=== PATIENT | female | born 1960 | race Caucasian/White ===

== ENCOUNTER 2022-03-31 10:42 | Inpatient (IN) | payer OTHER ==
[2022-03-31 11:31] VITALS: BMI 26.6
[2022-03-31] MEDS ORDERED: ONDANSETRON *ODT* 4 MG TABLET SL PRN (12:45)
[2022-03-31] MEDS ORDERED: DICYCLOMINE HCL 10 MG CAPSULE PO PRN (12:45)
[2022-03-31] MEDS ORDERED: methaDONE HCL 10 MG TABLET (FOR DETOX USE ONLY) PO ONE ×2 (12:45→18:30)
[2022-03-31] MEDS ORDERED: BISMUTH SUBSALICYLATE 262 MG/15 ML BTL PO PRN (12:45)
[2022-03-31] MEDS ORDERED: chlordiazePOXIDE HCL 25 MG CAPSULE PO PRN (12:45)
[2022-03-31] MEDS ORDERED: NALOXONE HCL (KLOXXADO) 8 MG SPRAY NS PRN (12:45)
[2022-03-31] MEDS ORDERED: MAGNESIUM HYDROX 2400MG/30ML ORAL SUSPENSION 30 ML CUP PO PRN (12:45)
[2022-03-31] MEDS ORDERED: BENZOCAINE/MENTHOL (CHLORASEPTIC ) LOZENGE MM PRN (12:45)
[2022-03-31] MEDS ORDERED: MAGNESIUM CITRATE 300 ML BOTTLE PO PRN (12:45)
[2022-03-31] MEDS ORDERED: ACETAMINOPHEN 325 MG TABLET (FP) PO PRN ×2 (12:45)
[2022-03-31] MEDS ORDERED: IBUPROFEN 400 MG TABLET (FP) PO PRN (12:45)
[2022-03-31] MEDS ORDERED: LOPERAMIDE HCL 2 MG CAPSULE PO PRN (12:45)
[2022-03-31] MEDS ORDERED: MAG HYDROX/AL HYDROX/SIMETH 30 ML UNIT-DOSE CUP PO PRN (12:45)
[2022-03-31] MEDS ORDERED: cloNIDine HCL 0.1 MG TABLET PO PRN (12:45)
[2022-03-31] MEDS ORDERED: ALBUTEROL SO4 HFA INHALER IH PRN (15:58)
[2022-03-31] MEDS: chlordiazePOXIDE HCL 25 MG CAPSULE PO SCH ×2 (18:35→22:40)
[2022-03-31] MEDS: hydrOXYzine PAMOATE 25 MG CAPSULE (FP) PO SCH ×3 (18:36→22:39)
[2022-03-31] MEDS: PRENATAL VITAMINS W/ FOLIC ACID TABLET (FP) PO SCH (18:37)
[2022-03-31] MEDS: INSULIN SLIDING SCALE (NOVOLOG) 1 VIAL SQ SCH (18:40)
[2022-03-31] MEDS: MELATONIN 5 MG TABLETS PO SCH (22:39)
[2022-03-31] MEDS: MONTELUKAST NA 10 MG TABLET PO SCH (22:39)
[2022-03-31] MEDS: ATORVASTATIN CA 80 MG TABLET (FP) PO SCH (22:39)
[2022-03-31] MEDS: CARVEDILOL 3.125 MG TABLET (FP) PO SCH (22:39)
[2022-03-31] MEDS: THIAMINE HCL 100 MG TABLET (FP) PO SCH (22:39)
[2022-03-31] MEDS: busPIRone HCL 10 MG TABLET (FP) PO SCH (22:39)
[2022-04-01] MEDS: hydrOXYzine PAMOATE 25 MG CAPSULE (FP) PO SCH ×5 (05:51→22:34)
[2022-04-01] MEDS: chlordiazePOXIDE HCL 25 MG CAPSULE PO SCH ×4 (05:52→22:34)
[2022-04-01] MEDS: INSULIN SLIDING SCALE (NOVOLOG) 1 VIAL SQ SCH ×2 (07:10→17:34)
[2022-04-01] MEDS ORDERED: methaDONE HCL 10 MG TABLET (FOR DETOX USE ONLY) ONE (09:05)
[2022-04-01] MEDS: busPIRone HCL 10 MG TABLET (FP) PO SCH ×2 (10:37→22:34)
[2022-04-01] MEDS: FUROSEMIDE 40 MG TABLET (FP) PO SCH (10:37)
[2022-04-01] MEDS: CARVEDILOL 3.125 MG TABLET (FP) PO SCH ×2 (10:37→22:34)
[2022-04-01] MEDS: ASPIRIN 81 MG CHEWABLE TABLETS PO SCH (10:37)
[2022-04-01] MEDS: SENNOSIDES 8.6MG TABLET (FP) PO SCH (10:37)
[2022-04-01] MEDS: PRENATAL VITAMINS W/ FOLIC ACID TABLET (FP) PO SCH (10:43)
[2022-04-01] MEDS: LISINOPRIL 20 MG TABLET PO SCH (10:44)
[2022-04-01 13:03] LABS: HEMATOCRIT 39.6 % (32.4-45.2); HEMOGLOBIN 13.5 GM/dL (10.7-15.3); MCH 30.2 pg (25.7-33.7); MCHC 34.2 g/dl (32.0-36.0); MEAN CELL VOLUME 88.5 fl (80-96); MEAN PLT VOLUME 7.9 fl (7.5-11.1); PLATELET COUNT 201 10^3/uL (134-434); RBC 4.48 M/mm3 (3.60-5.2); RDW 13.2 % (11.6-15.6); WHITE BLOOD COUNT 5.9 K/mm3 (4.0-10.0)
[2022-04-01 13:39] LABS: CALCIUM 8.8 mg/dL (8.5-10.1)
[2022-04-01 13:40] LABS: ALBUMIN 3.5 g/dl (3.4-5.0); BLOOD UREA NITROGEN 23.8 mg/dL (7-18)
[2022-04-01 13:43] LABS: CREATININE 0.7 mg/dL (0.55-1.3)
[2022-04-01 13:45] LABS: BILIRUBIN,TOTAL 0.4 mg/dL (0.2-1); TOT PROT 5.8 g/dl (6.4-8.2)
[2022-04-01] MEDS: ATORVASTATIN CA 80 MG TABLET (FP) PO SCH (22:34)
[2022-04-01] MEDS: THIAMINE HCL 100 MG TABLET (FP) PO SCH (22:34)
[2022-04-01] MEDS: MONTELUKAST NA 10 MG TABLET PO SCH (22:34)
[2022-04-01] MEDS: MELATONIN 5 MG TABLETS PO SCH (22:34)
[2022-04-01] MEDS: traZODone HCL 50 MG TABLET (FP) PO SCH (22:34)
[2022-04-02 00:14] LABS: EPI CELLS 13 /uL (0-25.1); HYALINE CASTS 0 /uL (0-3.1); PH,URINE 5.5 (5.0-8.0); URINE APPEARANCE CLEAR; URINE BACTERIA 23 /uL (0-1359); URINE BILIRUBIN NEGATIVE (NEGATIVE); URINE COLOR YELLOW; URINE GLUCOSE (UA) NEGATIVE (NEGATIVE); URINE KETONE NEGATIVE (NEGATIVE); URINE LEUK ESTERASE 1+ (NEGATIVE); URINE NITRITE NEGATIVE (NEGATIVE); URINE PROTEIN NEGATIVE (NEGATIVE); URINE RBC 4 /uL (0-23.9); URINE UROBILINOGEN 0.2 mg/dL (0.2-1.0); URINE WBC 11 /uL (0-25.8)
[2022-04-02] MEDS: chlordiazePOXIDE HCL 25 MG CAPSULE PO SCH ×4 (06:35→22:24)
[2022-04-02] MEDS: hydrOXYzine PAMOATE 25 MG CAPSULE (FP) PO SCH ×5 (06:35→22:23)
[2022-04-02] MEDS: INSULIN SLIDING SCALE (NOVOLOG) 1 VIAL SQ SCH ×2 (08:43→18:04)
[2022-04-02] MEDS ORDERED: methaDONE HCL 10 MG TABLET (FOR DETOX USE ONLY) PO ONE (10:00)
[2022-04-02] MEDS: ASPIRIN 81 MG CHEWABLE TABLETS PO SCH (10:30)
[2022-04-02] MEDS: FUROSEMIDE 40 MG TABLET (FP) PO SCH (10:30)
[2022-04-02] MEDS: PRENATAL VITAMINS W/ FOLIC ACID TABLET (FP) PO SCH (10:30)
[2022-04-02] MEDS: CARVEDILOL 3.125 MG TABLET (FP) PO SCH ×2 (10:30→22:24)
[2022-04-02] MEDS: LISINOPRIL 20 MG TABLET PO SCH (10:30)
[2022-04-02] MEDS: SENNOSIDES 8.6MG TABLET (FP) PO SCH (10:30)
[2022-04-02] MEDS: busPIRone HCL 10 MG TABLET (FP) PO SCH ×2 (10:30→22:24)
[2022-04-02] MEDS: IBUPROFEN 600 MG TABLET (FP) PO PRN (11:20)
[2022-04-02] MEDS: MONTELUKAST NA 10 MG TABLET PO SCH (22:24)
[2022-04-02] MEDS: ATORVASTATIN CA 80 MG TABLET (FP) PO SCH (22:24)
[2022-04-02] MEDS: MELATONIN 5 MG TABLETS PO SCH (22:24)
[2022-04-02] MEDS: traZODone HCL 50 MG TABLET (FP) PO SCH (22:24)
[2022-04-02] MEDS: THIAMINE HCL 100 MG TABLET (FP) PO SCH (22:24)
[2022-04-03] MEDS ORDERED: chlordiazePOXIDE HCL 10 MG CAPSULE PO PRN
[2022-04-03] MEDS: METHOCARBAMOL 500 MG TABLET PO PRN ×2 (04:35→22:30)
[2022-04-03] MEDS: hydrOXYzine PAMOATE 25 MG CAPSULE (FP) PO SCH ×5 (06:50→22:29)
[2022-04-03] MEDS: chlordiazePOXIDE HCL 10 MG CAPSULE PO SCH ×4 (06:50→22:28)
[2022-04-03] MEDS: INSULIN SLIDING SCALE (NOVOLOG) 1 VIAL SQ SCH ×2 (06:53→17:28)
[2022-04-03] MEDS ORDERED: methaDONE HCL 10 MG TABLET (FOR DETOX USE ONLY) ONE (10:06)
[2022-04-03] MEDS: FUROSEMIDE 40 MG TABLET (FP) PO SCH (10:33)
[2022-04-03] MEDS: LISINOPRIL 20 MG TABLET PO SCH (10:33)
[2022-04-03] MEDS: busPIRone HCL 10 MG TABLET (FP) PO SCH ×2 (10:33→22:29)
[2022-04-03] MEDS: CARVEDILOL 3.125 MG TABLET (FP) PO SCH ×2 (10:33→22:29)
[2022-04-03] MEDS: ASPIRIN 81 MG CHEWABLE TABLETS PO SCH (10:33)
[2022-04-03] MEDS: PRENATAL VITAMINS W/ FOLIC ACID TABLET (FP) PO SCH (10:33)
[2022-04-03] MEDS: SENNOSIDES 8.6MG TABLET (FP) PO SCH (10:33)
[2022-04-03] MEDS: ATORVASTATIN CA 80 MG TABLET (FP) PO SCH (22:28)
[2022-04-03] MEDS: MONTELUKAST NA 10 MG TABLET PO SCH (22:29)
[2022-04-03] MEDS: traZODone HCL 50 MG TABLET (FP) PO SCH (22:29)
[2022-04-03] MEDS: THIAMINE HCL 100 MG TABLET (FP) PO SCH (22:29)
[2022-04-03] MEDS: MELATONIN 5 MG TABLETS PO SCH (22:29)
[2022-04-03] MEDS: IBUPROFEN 600 MG TABLET (FP) PO PRN (23:26)
[2022-04-04] MEDS: hydrOXYzine PAMOATE 25 MG CAPSULE (FP) PO SCH ×5 (06:28→23:33)
[2022-04-04] MEDS: chlordiazePOXIDE HCL 10 MG CAPSULE PO SCH ×2 (06:28→17:48)
[2022-04-04] MEDS: INSULIN SLIDING SCALE (NOVOLOG) 1 VIAL SQ SCH ×2 (08:50→17:50)
[2022-04-04] MEDS ORDERED: methaDONE HCL 10 MG TABLET (FOR DETOX USE ONLY) PO ONE (10:00)
[2022-04-04] MEDS: PRENATAL VITAMINS W/ FOLIC ACID TABLET (FP) PO SCH (10:29)
[2022-04-04] MEDS: IBUPROFEN 600 MG TABLET (FP) PO PRN (10:29)
[2022-04-04] MEDS: METHOCARBAMOL 500 MG TABLET PO PRN ×2 (10:29→22:29)
[2022-04-04] MEDS: SENNOSIDES 8.6MG TABLET (FP) PO SCH (10:30)
[2022-04-04] MEDS: busPIRone HCL 10 MG TABLET (FP) PO SCH ×2 (10:30→22:26)
[2022-04-04] MEDS: FUROSEMIDE 40 MG TABLET (FP) PO SCH (10:30)
[2022-04-04] MEDS: ASPIRIN 81 MG CHEWABLE TABLETS PO SCH (10:30)
[2022-04-04] MEDS: CARVEDILOL 3.125 MG TABLET (FP) PO SCH ×2 (10:31→22:26)
[2022-04-04] MEDS: LISINOPRIL 20 MG TABLET PO SCH (10:31)
[2022-04-04] MEDS: LIDOCAINE 5% TOPICAL PATCH TP SCH (15:18)
[2022-04-04] MEDS ORDERED: LIDOCAINE PATCH REMOVAL MC SCH ×2 (22:00)
[2022-04-04] MEDS: THIAMINE HCL 100 MG TABLET (FP) PO SCH (22:26)
[2022-04-04] MEDS: ATORVASTATIN CA 80 MG TABLET (FP) PO SCH (22:26)
[2022-04-04] MEDS: traZODone HCL 50 MG TABLET (FP) PO SCH (22:26)
[2022-04-04] MEDS: MELATONIN 5 MG TABLETS PO SCH (22:27)
[2022-04-04] MEDS: MONTELUKAST NA 10 MG TABLET PO SCH (22:29)
[2022-04-05] MEDS ORDERED: chlordiazePOXIDE HCL 10 MG CAPSULE PO ONE (05:00)
[2022-04-05] MEDS: hydrOXYzine PAMOATE 25 MG CAPSULE (FP) PO SCH ×2 (06:06→10:27)
[2022-04-05] MEDS: METHOCARBAMOL 500 MG TABLET PO PRN (06:07)
[2022-04-05] MEDS: IBUPROFEN 600 MG TABLET (FP) PO PRN (06:07)
[2022-04-05] MEDS: INSULIN SLIDING SCALE (NOVOLOG) 1 VIAL SQ SCH (07:08)
[2022-04-05 08:51] VITALS: BP 155/92; PULSE 62; TEMP 97.5
[2022-04-05] MEDS: LISINOPRIL 20 MG TABLET PO SCH (10:27)
[2022-04-05] MEDS: PRENATAL VITAMINS W/ FOLIC ACID TABLET (FP) PO SCH (10:27)
[2022-04-05] MEDS: SENNOSIDES 8.6MG TABLET (FP) PO SCH (10:27)
[2022-04-05] MEDS: busPIRone HCL 10 MG TABLET (FP) PO SCH (10:28)
[2022-04-05] MEDS: CARVEDILOL 3.125 MG TABLET (FP) PO SCH (10:28)
[2022-04-05] MEDS: FUROSEMIDE 40 MG TABLET (FP) PO SCH (10:28)
[2022-04-05] MEDS: ASPIRIN 81 MG CHEWABLE TABLETS PO SCH (10:28)
[2022-04-05] MEDS: LIDOCAINE 5% TOPICAL PATCH TP SCH (10:29)
== END 2022-04-05 11:37 | disposition other institution (70) | DRG 773 ==
LOC: YASAS 10:42 → Y3N 14:26
PROVIDERS: ADMIT Allergy & Immunology; ATTEND Surgery
PROC: HZ2ZZZZ Detoxification Services for Substance Abuse Treatment (ICD-10-PCS; principal; 2022-03-31)
DX: F11.23 Opioid dependence with withdrawal (principal); F10.230 Alcohol dependence with withdrawal, uncomplicated; F14.10 Cocaine abuse, uncomplicated; F31.9 Bipolar disorder, unspecified; I11.0 Hypertensive heart disease with heart failure; J45.909 Unspecified asthma, uncomplicated; E11.9 Type 2 diabetes mellitus without complications; G47.00 Insomnia, unspecified; E78.5 Hyperlipidemia, unspecified; I50.9 Heart failure, unspecified; Z28.310 Unvaccinated for COVID-19; Z79.84 Long term (current) use of oral hypoglycemic drugs; Z91.51 Personal history of suicidal behavior; Z56.0 Unemployment, unspecified
CPT/HCPCS: 36415; 80053; 81003; 82962; 85027; 86780; 93005; 93010; C9803-CS; U0003; U0005

== ENCOUNTER 2022-04-05 11:45 | Inpatient (IN) | payer OTHER ==
[2022-04-05] MEDS ORDERED: MAG HYDROX/AL HYDROX/SIMETH 30 ML UNIT-DOSE CUP PO PRN (14:43)
[2022-04-05] MEDS ORDERED: MAGNESIUM HYDROX 2400MG/30ML ORAL SUSPENSION 30 ML CUP PO PRN (14:43)
[2022-04-05] MEDS ORDERED: P-EPHED 60MG/TRIPROLIDI 2.5MG TABLET PO PRN (14:43)
[2022-04-05] MEDS ORDERED: MAGNESIUM CITRATE 300 ML BOTTLE PO PRN (14:43)
[2022-04-05] MEDS ORDERED: BENZOCAINE/MENTHOL (CHLORASEPTIC ) LOZENGE MM PRN (14:43)
[2022-04-05] MEDS ORDERED: NICOTINE 10 MG CARTRIDGE (INHALER) IH PRN (14:43)
[2022-04-05] MEDS ORDERED: LOPERAMIDE HCL 2 MG CAPSULE PO PRN (14:43)
[2022-04-05] MEDS ORDERED: guaiFENesin 200 MG/10 ML 10 ML UNIT-DOSE CUPS PO PRN (14:43)
[2022-04-05] MEDS ORDERED: ALBUTEROL SO4 HFA INHALER IH PRN (14:50)
[2022-04-05] MEDS: INSULIN SLIDING SCALE (NOVOLOG) 1 VIAL SQ SCH (17:26)
[2022-04-05] MEDS: hydrOXYzine PAMOATE 25 MG CAPSULE (FP) PO PRN (17:28)
[2022-04-05] MEDS ORDERED: ATORVASTATIN CA 40 MG TABLET (FP) ONE (21:47)
[2022-04-05] MEDS: ATORVASTATIN CA 80 MG TABLET (FP) PO SCH (21:49)
[2022-04-05] MEDS: BUDESONIDE/FORMETEROL FUMARATE 160/4.5 mcg INHALER IH SCH (21:49)
[2022-04-05] MEDS: MONTELUKAST NA 10 MG TABLET PO SCH (21:50)
[2022-04-05] MEDS: busPIRone HCL 10 MG TABLET (FP) PO SCH (21:50)
[2022-04-05] MEDS: CARVEDILOL 3.125 MG TABLET (FP) PO SCH (21:50)
[2022-04-05] MEDS: MELATONIN 5 MG TABLETS PO SCH (21:50)
[2022-04-05] MEDS: THIAMINE HCL 100 MG TABLET (FP) PO SCH (21:51)
[2022-04-05] MEDS ORDERED: FUROSEMIDE 40 MG TABLET (FP) PO SCH (22:00)
[2022-04-06] MEDS: IBUPROFEN 400 MG TABLET (FP) PO PRN (00:48)
[2022-04-06] MEDS: hydrOXYzine PAMOATE 25 MG CAPSULE (FP) PO PRN ×2 (00:49→10:52)
[2022-04-06] MEDS: ACETAMINOPHEN 325 MG TABLET (FP) PO PRN (06:21)
[2022-04-06] MEDS: INSULIN SLIDING SCALE (NOVOLOG) 1 VIAL SQ SCH ×2 (06:56→16:54)
[2022-04-06] MEDS: PRENATAL VITAMINS W/ FOLIC ACID TABLET (FP) PO SCH (10:48)
[2022-04-06] MEDS: BUDESONIDE/FORMETEROL FUMARATE 160/4.5 mcg INHALER IH SCH ×2 (10:48→21:28)
[2022-04-06] MEDS: LISINOPRIL 20 MG TABLET PO SCH (10:49)
[2022-04-06] MEDS: SENNOSIDES 8.6MG TABLET (FP) PO SCH (10:49)
[2022-04-06] MEDS: busPIRone HCL 10 MG TABLET (FP) PO SCH ×2 (10:49→21:29)
[2022-04-06] MEDS: ASPIRIN 81 MG CHEWABLE TABLETS PO SCH (10:49)
[2022-04-06] MEDS: NICOTINE 7 MG/24 HOURS TOPICAL PATCH TD SCH (10:50)
[2022-04-06] MEDS: FUROSEMIDE 40 MG TABLET (FP) PO SCH (10:50)
[2022-04-06] MEDS: CARVEDILOL 3.125 MG TABLET (FP) PO SCH ×2 (10:51→21:29)
[2022-04-06] MEDS ORDERED: ARIPiprazole 15 MG TABLET PO ONE (11:27)
[2022-04-06] MEDS ORDERED: FLUoxetine HCL 20 MG CAPSULE PO ONE (11:27)
[2022-04-06] MEDS ORDERED: INSULIN (NOVOLOG) ASPART 100 UNITS/ML 10ML VIAL ONE (16:37)
[2022-04-06] MEDS ORDERED: ATORVASTATIN CA 40 MG TABLET (FP) ONE (19:23)
[2022-04-06] MEDS: THIAMINE HCL 100 MG TABLET (FP) PO SCH (21:27)
[2022-04-06] MEDS: MONTELUKAST NA 10 MG TABLET PO SCH (21:29)
[2022-04-06] MEDS: MELATONIN 5 MG TABLETS PO SCH (21:29)
[2022-04-06] MEDS: ATORVASTATIN CA 80 MG TABLET (FP) PO SCH (21:29)
[2022-04-06] MEDS: SUVOREXANT 15 MG TABLET PO PRN (21:30)
[2022-04-07] MEDS: INSULIN SLIDING SCALE (NOVOLOG) 1 VIAL SQ SCH ×2 (06:49→16:42)
[2022-04-07] MEDS: PRENATAL VITAMINS W/ FOLIC ACID TABLET (FP) PO SCH (10:44)
[2022-04-07] MEDS: BUDESONIDE/FORMETEROL FUMARATE 160/4.5 mcg INHALER IH SCH ×2 (10:44→21:48)
[2022-04-07] MEDS: FLUoxetine HCL 20 MG CAPSULE PO SCH (10:47)
[2022-04-07] MEDS: ASPIRIN 81 MG CHEWABLE TABLETS PO SCH (10:47)
[2022-04-07] MEDS: busPIRone HCL 10 MG TABLET (FP) PO SCH ×2 (10:47→21:44)
[2022-04-07] MEDS: ARIPiprazole 15 MG TABLET PO SCH (10:48)
[2022-04-07] MEDS: NICOTINE 7 MG/24 HOURS TOPICAL PATCH TD SCH (10:48)
[2022-04-07] MEDS: FUROSEMIDE 40 MG TABLET (FP) PO SCH (10:48)
[2022-04-07] MEDS: LISINOPRIL 20 MG TABLET PO SCH (10:48)
[2022-04-07] MEDS: CARVEDILOL 3.125 MG TABLET (FP) PO SCH ×2 (10:49→21:44)
[2022-04-07] MEDS: SENNOSIDES 8.6MG TABLET (FP) PO SCH (10:49)
[2022-04-07] MEDS: hydrOXYzine PAMOATE 25 MG CAPSULE (FP) PO PRN (10:50)
[2022-04-07] MEDS ORDERED: ATORVASTATIN CA 40 MG TABLET (FP) ONE (19:42)
[2022-04-07] MEDS: MONTELUKAST NA 10 MG TABLET PO SCH (21:43)
[2022-04-07] MEDS: ATORVASTATIN CA 80 MG TABLET (FP) PO SCH (21:43)
[2022-04-07] MEDS: MELATONIN 5 MG TABLETS PO SCH (21:43)
[2022-04-07] MEDS: THIAMINE HCL 100 MG TABLET (FP) PO SCH (21:44)
[2022-04-07] MEDS: SUVOREXANT 15 MG TABLET PO PRN (21:46)
[2022-04-07] MEDS: IBUPROFEN 400 MG TABLET (FP) PO PRN (21:47)
[2022-04-08] MEDS: INSULIN SLIDING SCALE (NOVOLOG) 1 VIAL SQ SCH ×2 (06:33→17:00)
[2022-04-08] MEDS: PRENATAL VITAMINS W/ FOLIC ACID TABLET (FP) PO SCH (11:03)
[2022-04-08] MEDS: busPIRone HCL 10 MG TABLET (FP) PO SCH ×2 (11:05→22:15)
[2022-04-08] MEDS: ARIPiprazole 15 MG TABLET PO SCH (11:05)
[2022-04-08] MEDS: ASPIRIN 81 MG CHEWABLE TABLETS PO SCH (11:05)
[2022-04-08] MEDS: FLUoxetine HCL 20 MG CAPSULE PO SCH (11:05)
[2022-04-08] MEDS: LISINOPRIL 20 MG TABLET PO SCH (11:06)
[2022-04-08] MEDS: FUROSEMIDE 40 MG TABLET (FP) PO SCH (11:06)
[2022-04-08] MEDS: CARVEDILOL 3.125 MG TABLET (FP) PO SCH ×2 (11:08→22:16)
[2022-04-08] MEDS: SENNOSIDES 8.6MG TABLET (FP) PO SCH (11:08)
[2022-04-08] MEDS: NICOTINE 7 MG/24 HOURS TOPICAL PATCH TD SCH (11:08)
[2022-04-08] MEDS: BUDESONIDE/FORMETEROL FUMARATE 160/4.5 mcg INHALER IH SCH ×2 (11:09→22:17)
[2022-04-08] MEDS: hydrOXYzine PAMOATE 25 MG CAPSULE (FP) PO PRN ×2 (11:11→22:19)
[2022-04-08] MEDS ORDERED: INSULIN (NOVOLOG) ASPART 100 UNITS/ML 10ML VIAL ONE (16:19)
[2022-04-08] MEDS ORDERED: ATORVASTATIN CA 40 MG TABLET (FP) ONE (19:43)
[2022-04-08] MEDS: THIAMINE HCL 100 MG TABLET (FP) PO SCH (22:15)
[2022-04-08] MEDS: ATORVASTATIN CA 80 MG TABLET (FP) PO SCH (22:16)
[2022-04-08] MEDS: MELATONIN 5 MG TABLETS PO SCH (22:16)
[2022-04-08] MEDS: MONTELUKAST NA 10 MG TABLET PO SCH (22:16)
[2022-04-08] MEDS: SUVOREXANT 15 MG TABLET PO PRN (22:18)
[2022-04-09] MEDS: INSULIN SLIDING SCALE (NOVOLOG) 1 VIAL SQ SCH ×2 (06:47→16:50)
[2022-04-09] MEDS: ACETAMINOPHEN 325 MG TABLET (FP) PO PRN (07:37)
[2022-04-09] MEDS: FLUoxetine HCL 20 MG CAPSULE PO SCH (11:06)
[2022-04-09] MEDS: PRENATAL VITAMINS W/ FOLIC ACID TABLET (FP) PO SCH (11:06)
[2022-04-09] MEDS: LISINOPRIL 20 MG TABLET PO SCH (11:06)
[2022-04-09] MEDS: FUROSEMIDE 40 MG TABLET (FP) PO SCH (11:07)
[2022-04-09] MEDS: CARVEDILOL 3.125 MG TABLET (FP) PO SCH ×2 (11:07→21:53)
[2022-04-09] MEDS: ASPIRIN 81 MG CHEWABLE TABLETS PO SCH (11:07)
[2022-04-09] MEDS: busPIRone HCL 10 MG TABLET (FP) PO SCH ×2 (11:07→21:53)
[2022-04-09] MEDS: NICOTINE 7 MG/24 HOURS TOPICAL PATCH TD SCH (11:08)
[2022-04-09] MEDS: SENNOSIDES 8.6MG TABLET (FP) PO SCH (11:08)
[2022-04-09] MEDS: BUDESONIDE/FORMETEROL FUMARATE 160/4.5 mcg INHALER IH SCH ×2 (11:08→21:53)
[2022-04-09] MEDS: ARIPiprazole 15 MG TABLET PO SCH (11:32)
[2022-04-09] MEDS ORDERED: ATORVASTATIN CA 40 MG TABLET (FP) ONE (19:45)
[2022-04-09] MEDS: THIAMINE HCL 100 MG TABLET (FP) PO SCH (21:53)
[2022-04-09] MEDS: MONTELUKAST NA 10 MG TABLET PO SCH (21:53)
[2022-04-09] MEDS: MELATONIN 5 MG TABLETS PO SCH (21:53)
[2022-04-09] MEDS: ATORVASTATIN CA 80 MG TABLET (FP) PO SCH (21:53)
[2022-04-09] MEDS: SUVOREXANT 15 MG TABLET PO PRN (21:54)
[2022-04-10] MEDS: IBUPROFEN 400 MG TABLET (FP) PO PRN ×3 (06:18→21:49)
[2022-04-10] MEDS: INSULIN SLIDING SCALE (NOVOLOG) 1 VIAL SQ SCH ×2 (06:52→17:11)
[2022-04-10] MEDS: hydrOXYzine PAMOATE 25 MG CAPSULE (FP) PO PRN ×2 (07:24→21:50)
[2022-04-10] MEDS: ARIPiprazole 15 MG TABLET PO SCH (10:25)
[2022-04-10] MEDS: FLUoxetine HCL 20 MG CAPSULE PO SCH (10:25)
[2022-04-10] MEDS: LISINOPRIL 20 MG TABLET PO SCH (10:25)
[2022-04-10] MEDS: ASPIRIN 81 MG CHEWABLE TABLETS PO SCH (10:25)
[2022-04-10] MEDS: busPIRone HCL 10 MG TABLET (FP) PO SCH ×2 (10:25→21:46)
[2022-04-10] MEDS: PRENATAL VITAMINS W/ FOLIC ACID TABLET (FP) PO SCH (10:26)
[2022-04-10] MEDS: BUDESONIDE/FORMETEROL FUMARATE 160/4.5 mcg INHALER IH SCH ×2 (10:26→21:50)
[2022-04-10] MEDS: NICOTINE 7 MG/24 HOURS TOPICAL PATCH TD SCH (10:26)
[2022-04-10] MEDS: FUROSEMIDE 40 MG TABLET (FP) PO SCH (10:26)
[2022-04-10] MEDS: CARVEDILOL 3.125 MG TABLET (FP) PO SCH ×2 (10:28→22:00)
[2022-04-10] MEDS: SENNOSIDES 8.6MG TABLET (FP) PO SCH (10:30)
[2022-04-10] MEDS ORDERED: ATORVASTATIN CA 40 MG TABLET (FP) ONE (19:34)
[2022-04-10] MEDS: ATORVASTATIN CA 80 MG TABLET (FP) PO SCH (21:46)
[2022-04-10] MEDS: MELATONIN 5 MG TABLETS PO SCH (21:46)
[2022-04-10] MEDS: THIAMINE HCL 100 MG TABLET (FP) PO SCH (21:47)
[2022-04-10] MEDS: MONTELUKAST NA 10 MG TABLET PO SCH (21:47)
[2022-04-10] MEDS: SUVOREXANT 15 MG TABLET PO PRN (21:52)
[2022-04-11] MEDS: INSULIN SLIDING SCALE (NOVOLOG) 1 VIAL SQ SCH (06:39)
[2022-04-11] MEDS: hydrOXYzine PAMOATE 25 MG CAPSULE (FP) PO PRN (06:40)
[2022-04-11 07:27] VITALS: TEMP 97.3
[2022-04-11] MEDS: PRENATAL VITAMINS W/ FOLIC ACID TABLET (FP) PO SCH (09:40)
[2022-04-11] MEDS: LISINOPRIL 20 MG TABLET PO SCH (09:40)
[2022-04-11] MEDS: FLUoxetine HCL 20 MG CAPSULE PO SCH (09:40)
[2022-04-11] MEDS: ASPIRIN 81 MG CHEWABLE TABLETS PO SCH (09:40)
[2022-04-11] MEDS: FUROSEMIDE 40 MG TABLET (FP) PO SCH (09:40)
[2022-04-11] MEDS: CARVEDILOL 3.125 MG TABLET (FP) PO SCH (09:40)
[2022-04-11] MEDS: SENNOSIDES 8.6MG TABLET (FP) PO SCH (09:41)
[2022-04-11] MEDS: NICOTINE 7 MG/24 HOURS TOPICAL PATCH TD SCH (09:41)
[2022-04-11] MEDS: busPIRone HCL 10 MG TABLET (FP) PO SCH (09:42)
[2022-04-11] MEDS: BUDESONIDE/FORMETEROL FUMARATE 160/4.5 mcg INHALER IH SCH (09:42)
[2022-04-11] MEDS: ARIPiprazole 15 MG TABLET PO SCH (09:44)
[2022-04-11 10:48] VITALS: BP 131/88; PULSE 95
== END 2022-04-11 10:05 | disposition home or self-care (01) | DRG 773 ==
LOC: YASAS 11:45 → Y5N 11:51
PROVIDERS: ADMIT Allergy & Immunology; ATTEND Psychiatry & Neurology Pain Medicine
PROC: HZ2ZZZZ Detoxification Services for Substance Abuse Treatment (ICD-10-PCS; principal; 2022-04-05)
DX: F11.20 Opioid dependence, uncomplicated (principal); F10.20 Alcohol dependence, uncomplicated; F14.20 Cocaine dependence, uncomplicated; F31.9 Bipolar disorder, unspecified; F41.9 Anxiety disorder, unspecified; F19.282 Other psychoactive substance dependence with psychoactive substance-induced sleep disorder; I11.0 Hypertensive heart disease with heart failure; I50.9 Heart failure, unspecified; E78.5 Hyperlipidemia, unspecified; E11.9 Type 2 diabetes mellitus without complications; G47.00 Insomnia, unspecified; J45.909 Unspecified asthma, uncomplicated
CPT/HCPCS: 82962

== ENCOUNTER 2023-06-08 12:52 | Emergency (ER) | payer OTHER ==
[2023-06-08 13:10] VITALS: PULSE 63; BMI 29.4
[2023-06-08] MEDS ORDERED: LACTATED RINGERS SOLUTION 1000 ML INFUS.BAG IV ONE (14:50)
[2023-06-08] MEDS ORDERED: LORazepam 2 MG/ML SDV VIAL IVPUSH ONE ×2 (15:27→20:56)
[2023-06-08 16:03] LABS: INR 0.99 (0.83-1.09); PROTHROMBIN TIME (PATIENT) 11.5 SEC (9.7-13.0)
[2023-06-08 16:04] LABS: ACTIVATED PTT 31.5 SECONDS (25.2-36.5)
[2023-06-08 16:10] LABS: BASO % 0.3 % (0-2.0); EOS % 2.8 % (0-4.5); HEMATOCRIT 46.7 % (32.4-45.2); HEMOGLOBIN 15.9 GM/dL (10.7-15.3); LYMPH % 22.4 % (8-40); MCHC 34.1 g/dl (32.0-36.0); MEAN CELL VOLUME 87.9 fl (80-96); MEAN PLT VOLUME 7.5 fl (7.5-11.1); MONO % 6.3 % (3.8-10.2); NEUT % 68.2 % (42.8-82.8); PLATELET COUNT 263 10^3/uL (134-434); RBC 5.32 M/mm3 (3.60-5.2); RDW 13.6 % (11.6-15.6); WHITE BLOOD COUNT 7.3 K/mm3 (4.0-10.0)
[2023-06-08 16:14] LABS: POTASSIUM 5.1 mmol/L (3.5-5.1)
[2023-06-08 16:16] LABS: BLOOD UREA NITROGEN 12.9 mg/dL (7-18); CALCIUM 8.9 mg/dL (8.5-10.1)
[2023-06-08 16:17] LABS: ALBUMIN 4.1 g/dl (3.4-5.0)
[2023-06-08 16:20] LABS: CREATININE 0.7 mg/dL (0.55-1.3)
[2023-06-08 16:21] LABS: BILIRUBIN,TOTAL 0.7 mg/dL (0.2-1); TOT PROT 7.5 g/dl (6.4-8.2)
[2023-06-08 22:16] VITALS: BP 176/98; RESP 18; TEMP 97.2
== END 2023-06-08 23:11 | disposition home or self-care (01) ==
LOC: JER 12:52
PROC: 3E033NZ Introduction of Analgesics, Hypnotics, Sedatives into Peripheral Vein, Percutaneous Approach (ICD-10-PCS; principal; 2023-06-08)
PROC: 3E033NZ Introduction of Analgesics, Hypnotics, Sedatives into Peripheral Vein, Percutaneous Approach (ICD-10-PCS; 2023-06-08)
DX: S09.90XA Unspecified injury of head, initial encounter (principal); R07.81 Pleurodynia; F10.930 Alcohol use, unspecified with withdrawal, uncomplicated; R00.1 Bradycardia, unspecified
CPT/HCPCS: 36415; 70450-TC; 71045-TC-FY; 71275-TC; 72125-TC; 80053; 84484; 85025; 85379; 85610; 85730; 93005; 93010; 93971-TC; 99285-25; Q9967